=== PATIENT | male | born 1970 | race Caucasian/White ===

== ENCOUNTER → 2023-01-16 | Outpatient (CLI) | payer OTHER ==
--- NOTE | 2023-01-16 16:55 | Diagnostic Imaging Report ---
Indication: Left knee pain. Time of Exam: 8:54 AM 4 views of the left knee were obtained. There is some mild medial compartmental joint space narrowing. Articular surfaces are smooth. No fracture, dislocation or effusion is identified. IMPRESSION: Mild degenerative changes. No acute bony abnormality is detected. Dictated by: Dictated on workstation # [id number]
== END ==
LOC: ORTHO 08:46
PROVIDERS: ATTEND Orthopaedic Surgery
DX: M17.12 Unilateral primary osteoarthritis, left knee (principal)
CPT/HCPCS: 73564; 99213

== ENCOUNTER → 2023-01-23 | Outpatient (CLI) | payer OTHER | LOC: ORTHO 12:14 | PROVIDERS: ATTEND Orthopaedic Surgery | DX: M17.12 Unilateral primary osteoarthritis, left knee (principal) ==

== ENCOUNTER → 2023-03-20 | Outpatient (CLI) | payer OTHER | LOC: ORTHO 10:18 | PROVIDERS: ATTEND Orthopaedic Surgery | DX: M17.12 Unilateral primary osteoarthritis, left knee (principal) | CPT/HCPCS: 99213 ==